=== PATIENT | female | born 1945 | race Caucasian/White ===

== ENCOUNTER 2018-01-08 20:40 | Emergency (ER) | payer OTHER ==
[~2018-01-08] VITALS: Ht 160 cm; Wt 256.0 kg
[~2018-01-08 20:40] MED LIST: ACTOS30 MG PO; CARDIZEM CD120 M1 PO; EFFEXOR75 MG PO; LIPITOR40 MG PO; METFORMIN HCL500 MG PO; NEXIUM40 MG PO; SYNTHROID125 MCG PO; TENORMIN50 MG PO; TYLENOL WITH C1 EACH PO
[2018-01-08 22:33] VITALS: BP 176/86
== END 2018-01-08 22:34 | disposition home or self-care (01) ==
LOC: EME → EDBD 20:40 → EME 20:40
DX: S06.0X0A Concussion without loss of consciousness, initial encounter (principal); V89.9XXA Person injured in unspecified vehicle accident, initial encounter; Y92.410 Unspecified street and highway as the place of occurrence of the external cause; K21.9 Gastro-esophageal reflux disease without esophagitis; J44.9 Chronic obstructive pulmonary disease, unspecified; I10 Essential (primary) hypertension; E11.9 Type 2 diabetes mellitus without complications; E03.9 Hypothyroidism, unspecified; F32.9 Major depressive disorder, single episode, unspecified; Z88.2 Allergy status to sulfonamides; Z88.0 Allergy status to penicillin; Z88.1 Allergy status to other antibiotic agents
CPT/HCPCS: 70450; 99281; 99284